=== PATIENT | female | born 1960 | race Caucasian/White ===

== ENCOUNTER → 2016-11-24 | Day surgery (SDC) | payer BC ==
[~2016-11-24] MED LIST: HYDROmorphone 2 MG/ML VIAL IV PRN; IV RINGERS,LACTATED 1000ML 1,000 ML IV SCH; LIDOCAINE 1% PF 2 ML VIAL. ID PRN; LIDOCAINE 2% PF Vial for OR 5 ML VIAL. ONE; MORPHINE SULFATE 2 MG/ML DISP.SYRIN. IV PRN; ONDANSETRON PF 4 MG/2 ML VIAL. IV PRN; PROCHLORPERAZINE 10 MG/2 ML VIAL. IV PRN; PROPOFOL 40 ML IV ONE; fentaNYL PF VIAL 100 MCG/2 ML VIAL IV PRN
[2016-11-24 09:25] VITALS: BP 110/58
--- NOTE | 2016-11-24 09:51 | CONS ---
DATE OF CONSULTATION: 11/24/2016 DATE OF SERVICE: 11/24/2016 REASON FOR CONSULTATION: History of colon polyps. HISTORY OF PRESENT ILLNESS: A 56-year-old female whose past medical history is significant for diabetes, history of colonic polyps as well as cholelithiasis, seen for interval colonoscopy. Last exam was in 2010, which she had several polyps removed at that time, had no melena and/or hematochezia. She does have some intermittent constipation, but otherwise is without additional complaints. PAST MEDICAL HISTORY: Significant for colon polyps, diabetes, cholelithiasis. ALLERGIES: ACETAMINOPHEN, PSEUDOEPHEDRINE. MEDICATIONS: At the present time on metformin and Tums. SOCIAL HISTORY: She is a nonsmoker and social drinker. PAST SURGICAL HISTORY: Status post cholecystectomy, oophorectomy. REVIEW OF SYSTEMS: Per records. PHYSICAL EXAMINATION: GENERAL: Reveals a well-nourished, well-developed female. VITAL SIGNS: Temperature is 97.3, pulse 71, respirations 20. HEENT: Normocephalic and atraumatic. Pupils and extraocular muscles not tested. Sclerae anicteric. NECK: Supple. LUNGS: Clear. CARDIOVASCULAR: Reveals S1, S2 without S3, S4 or appreciable murmur. ABDOMEN: Reveals soft abdomen, normal bowel sounds, without appreciable hepatosplenomegaly. EXTREMITIES: Reveals no cyanosis, clubbing or edema. IMPRESSION: History of colonic polyps. PLAN: Surveillance exam was recommended at this time. Risks and benefits of procedure including risk of hemorrhage or perforation have been discussed with the patient previously and she is going to proceed. GEOVANNA OTERO MD DR: [email or web address] JOB#: [id number] / [id number]
== END | disposition home or self-care (01) ==
LOC: ENDOS 07:18
PROVIDERS: ATTEND Internal Medicine Gastroenterology
DX: Z09 Encounter for follow-up examination after completed treatment for conditions other than malignant neoplasm (principal); Z86.010 Personal history of colon polyps; K64.0 First degree hemorrhoids; K57.30 Diverticulosis of large intestine without perforation or abscess without bleeding; E11.9 Type 2 diabetes mellitus without complications; Z90.49 Acquired absence of other specified parts of digestive tract; Z86.39 Personal history of other endocrine, nutritional and metabolic disease; Z88.8 Allergy status to other drugs, medicaments and biological substances
CPT/HCPCS: 45378; J2704; J2001

== ENCOUNTER → 2017-02-14 | Outpatient (CLI) | payer BC | END | disposition home or self-care (01) | LOC: PCVCIMAG 11:28 | DX: E11.9 Type 2 diabetes mellitus without complications (principal); R00.0 Tachycardia, unspecified; R55 Syncope and collapse; R07.9 Chest pain, unspecified | CPT/HCPCS: 93325; 93351 ==